=== PATIENT | female | born 1990 | race African-American/Black ===

== ENCOUNTER 2017-01-24 08:23 | Emergency (ER) | payer MEDICAID ==
[~2017-01-24] VITALS: Ht 170.2 cm; Wt 67.1 kg
[~2017-01-24 08:23] MED LIST: PREN-96 PO
[2017-01-24 09:44] LABS: Eosinophils # (auto) 0 uL; Monocytes # (auto) 0.3 uL; Neutrophils # (auto) 6.2 uL; Red Cell Distribution Width 15.4 % (11.8-14.3)
[2017-01-24 09:47] LABS: Hemoglobin 12.6 g/dL (12.2-16.2); Lymphocytes # (auto) 0.8 uL; White Blood Cell 7.4 10^3/uL (4.4-10.8)
[2017-01-24 09:50] LABS: Albumin 3.9 g/dL (3.4-5.0); BUN/Creatinine Ratio 11.4; Basophils # (auto) 0 uL; Basophils % (auto) 0.6 % (0.0-2.0); Calcium 8.8 mg/dL (8.5-10.1); Eosinophils % (auto) 0.1 % (0.0-7.0); Hematocrit 39.6 % (36.0-46.0); Lymphocytes % (auto) 10.6 % (10.0-50.0); Mean Corpuscular Hgb Conc. 31.9 g/dL (32.0-36.0); Mean Corpuscular Volume 81.5 fL (80.0-100.0); Mean Platelet Volume 8.1 fL (6.9-10.8); Monocytes % (auto) 4.5 % (0.0-12.0); Neutrophils % (auto) 84.2 % (37.0-80.0); Nucleated Red Blood Cells % 0.1 %; Platelet Count (auto) 293 10^3/uL (140-450); Potassium 3.9 mmol/L (3.5-5.1)
[2017-01-24 09:53] LABS: Bilirubin, Total 0.3 mg/dL (0.2-1.0); Total Protein 7.7 g/dL (6.4-8.2)
[2017-01-24 10:27] VITALS: BP 134/95
[2017-01-24 11:42] LABS: Urine Bilirubin Negative (Negative); Urine Blood TRACE /uL (Negative); Urine Color Yellow (Yellow); Urine Glucose Normal (Normal); Urine Ketone 2+ (Negative); Urine Mucus FEW (None Seen); Urine Nitrite Negative (Negative); Urine RBC 1 /hpf (0 - 4); Urine Squamous Epithelial Cell FEW /hpf (<5); Urine Urobilinogen Normal (Negative); Urine pH 5.5 (5.0-8.0)
[2017-01-24] MEDS ORDERED: SODIUM CHLORIDE 0.9% 1,000 ML IV ONE (11:57)
[2017-01-24] MEDS ORDERED: METOCLOPRAMIDE HCL 5MG/ml INJ 2ml VIAL IV ONE (12:00)
== END 2017-01-24 15:20 | disposition home or self-care (01) ==
LOC: ER 08:23
DX: K52.9 Noninfective gastroenteritis and colitis, unspecified (principal)
CPT/HCPCS: 36415; 80053; 81001; 81025; 83735; 85025; 96361; 96374; 99284; J2765; J7030

== ENCOUNTER 2017-05-11 17:59 | Emergency (ER) | payer MEDICAID ==
[~2017-05-11] VITALS: Ht 167.6 cm; Wt 66.2 kg
[2017-05-11 19:53] LABS: Eosinophils # (auto) 0 uL; Hemoglobin 12.5 g/dL (12.2-16.2)
[2017-05-11 19:55] LABS: Basophils # (auto) 0 uL; Basophils % (auto) 0.6 % (0.0-2.0); Eosinophils % (auto) 0.2 % (0.0-7.0); Hematocrit 38.8 % (36.0-46.0); Lymphocytes # (auto) 1.2 uL; Lymphocytes % (auto) 16.1 % (10.0-50.0); Mean Corpuscular Hemoglobin 26.3 pg (28.0-32.0); Mean Corpuscular Hgb Conc. 32.3 g/dL (32.0-36.0); Mean Corpuscular Volume 81.5 fL (80.0-100.0); Monocytes # (auto) 0.7 uL; Monocytes % (auto) 9.1 % (0.0-12.0); Neutrophils # (auto) 5.3 uL; Nucleated Red Blood Cells % 0.1 %; Platelet Count (auto) 382 10^3/uL (140-450); Red Blood Cells 4.76 10^6/uL (4.0-5.20); Red Cell Distribution Width 15.4 % (11.8-14.3); White Blood Cell 7.2 10^3/uL (4.4-10.8)
[2017-05-11 20:16] LABS: BUN/Creatinine Ratio 9.4; Calcium 8.2 mg/dL (8.5-10.1); Potassium 3.4 mmol/L (3.5-5.1)
[2017-05-11 21:23] LABS: Urine Bacteria FEW /hpf (None Seen); Urine Blood 1+ /uL (Negative); Urine Mucus MODERATE (None Seen); Urine Specific Gravity 1.042 (1.001-1.035); Urine WBC 3 /hpf (0 - 5)
[2017-05-11 21:48] LABS: Amylase 47 U/L (25-115); Lipase 73 U/L (73-393)
[2017-05-11] MEDS ORDERED: SODIUM CHLORIDE 0.9% 1,000 ML IV ONE (23:15)
[2017-05-11] MEDS ORDERED: cefTRIAXone 1GM/10ml IVPUSH 10 ML IV ONE (23:45)
[2017-05-12 00:03] VITALS: BP 104/65
[2017-05-12] MEDS ORDERED: ONDANSETRON HCL 4 MG/2 ML VIAL IV ONE (00:45)
[2017-05-12] MEDS ORDERED: ACETAMINOPHEN 325 MG TAB PO ONE ×2 (01:00)
== END 2017-05-12 05:49 | disposition home or self-care (01) ==
LOC: ER 18:03
DX: O23.41 Unspecified infection of urinary tract in pregnancy, first trimester (principal); Z79.899 Other long term (current) drug therapy; Z3A.01 Less than 8 weeks gestation of pregnancy
CPT/HCPCS: 36415; 76801; 76817; 80048; 81001; 81025; 82150; 83690; 84702; 85025; 96361; 96374; 96375; 99285; J2405; J7030

== ENCOUNTER 2017-11-11 01:14 | Emergency (ER) | payer MEDICAID ==
[~2017-11-11] VITALS: Ht 167.6 cm; Wt 65.8 kg
[2017-11-11] MEDS ORDERED: ONDANSETRON ODT 4 MG TAB PO ONE (03:30)
[2017-11-11] MEDS ORDERED: ACETAMINOPHEN 325 MG TAB PO ONE (03:30)
[2017-11-11 03:51] LABS: Urine Bacteria FEW /hpf (None Seen); Urine Blood 1+ /uL (Negative); Urine Mucus FEW (None Seen); Urine Specific Gravity 1.026 (1.001-1.035); Urine WBC 17 /hpf (0 - 5)
[2017-11-11 04:13] LABS: Alcohol, Urine < 3.0 mg/dL (0-5); Amphetamine Screen, Urine NEGATIVE (NEGATIVE); Barbiturate Scree,Urine NEGATIVE (NEGATIVE); Benzodiazephine Screen, Urine NEGATIVE (NEGATIVE); Cannabinoid Screen, Urine POSITIVE (NEGATIVE); Cocaine Screen, Urine POSITIVE (NEGATIVE); Opiate Scree,Urine NEGATIVE (NEGATIVE); Phencyclidine Screen, Urine NEGATIVE (NEGATIVE)
[2017-11-11 05:00] LABS: Basophils # (auto) 0.1 uL; Basophils % (auto) 0.8 % (0.0-2.0); Eosinophils # (auto) 0 uL; Hematocrit 41.1 % (36.0-46.0); Hemoglobin 13.7 g/dL (12.2-16.2); Lymphocytes # (auto) 0.7 uL; Lymphocytes % (auto) 8.2 % (10.0-50.0); Mean Corpuscular Hemoglobin 27.2 pg (28.0-32.0); Mean Corpuscular Hgb Conc. 33.3 g/dL (32.0-36.0); Mean Corpuscular Volume 81.7 fL (80.0-100.0); Monocytes # (auto) 0.3 uL; Monocytes % (auto) 3.6 % (0.0-12.0); Neutrophils # (auto) 7.3 uL; Neutrophils % (auto) 87.4 % (37.0-80.0); Nucleated Red Blood Cells % 0.1 %; Platelet Count (auto) 322 10^3/uL (140-450); Red Blood Cells 5.03 10^6/uL (4.0-5.20); White Blood Cell 8.4 10^3/uL (4.4-10.8)
[2017-11-11 05:17] LABS: Albumin 4.1 g/dL (3.4-5.0); BUN/Creatinine Ratio 8.9; Calcium 8.6 mg/dL (8.5-10.1); Potassium 3.8 mmol/L (3.5-5.1)
[2017-11-11 05:20] LABS: Bilirubin, Total 0.5 mg/dL (0.2-1.0); Total Protein 8.2 g/dL (6.4-8.2)
[2017-11-11] MEDS ORDERED: KETOROLAC TROMETH 60MG/2ML VIAL IM ONE ×2 (05:45)
[2017-11-11 05:52] VITALS: BP 134/88
== END 2017-11-11 05:53 | disposition home or self-care (01) ==
LOC: ER 01:14
DX: R10.84 Generalized abdominal pain (principal); F12.10 Cannabis abuse, uncomplicated
CPT/HCPCS: 36415; 74176; 80053; 80307; 81001; 81025; 82150; 83690; 85025; 96372; 99285; J1885; Q0162

== ENCOUNTER 2024-12-03 13:42 | Observation (INO) | payer MEDICAID, OTHER ==
[~2024-12-03] VITALS: Ht 170.2 cm; Wt 84.4 kg
[2024-12-03] MEDS: ONDANSETRON HCL 4 MG/2 ML VIAL IV ONE ×2 (14:38→17:12)
[2024-12-03] MEDS: LACTATED RINGER'S 1,000 ML IV ONE (14:40)
[2024-12-03 15:23] LABS: COVID19 ANTIGEN SOFIA FIA NEGATIVE (NEGATIVE)
[2024-12-03 16:00] LABS: Hematocrit 31.1 % (36.0-46.0); Hemoglobin 10.3 g/dL (12.2-16.2); Mean Corpuscular Hemoglobin 26.9 pg (28.0-32.0); Mean Corpuscular Volume 81.2 fL (80.0-100.0); Nucleated Red Blood Cells % 0.1 %
[2024-12-03 16:03] LABS: Alanine Aminotransferase 19 U/L (7-40); Albumin 4.1 g/dL (3.2-4.8); Alkaline Phosphatase 85 U/L (46-116); Anion Gap 11 (5-15); BUN/Creatinine Ratio 12.1 (10.0-20.0); Calcium 8.8 mg/dL (8.7-10.4); Carbon Dioxide 25 mmol/L (20-31); Chloride 102 mmol/L (98-107); Glucose 102 mg/dL (74-106); Sodium 138 mmol/L (136-145); Total Protein 6.8 g/dL (5.7-8.2); Uric Acid 4.2 mg/dL (3.1-7.8)
[2024-12-03 16:04] LABS: Bilirubin, Total 0.3 mg/dL (0.2-1.0)
[2024-12-03 16:07] LABS: Blood Urea Nitrogen 8 mg/dL (9-23); Potassium 3.1 mmol/L (3.5-5.1)
--- NOTE | 2024-12-03 16:35 | DVH ---
LIMITED OB ULTRASOUND > 14 WKS: HISTORY: PIH, limited records TECHNIQUE: Multiple real-time grayscale images of the gravid uterus with duplex Doppler color flow an d M-mode spectral analysis. TRANSDUCER: Transabdominal COMPARISON: US PELVIS PREG W TV on DOS: 04/22/22, US PELVIS PREG W TV on DOS: 03/28/22, US-PELVIS PREG W TV on DOS: 06/09/19 FINDINGS: IUP single live fetus at 29 weeks and 5 days based on composite averages of the BPD, head circumferen ce, abdominal circumference and femur length Estimated weight 1411 grams heart rate 160 beats per minute DOMONIQUE 13.6 cm Cervix is closed and measures 2.0 cm Cephalic Presentation Grade 2, fundal Placenta without previa or abruption. Limited assessment of anatomy secondary to advanced gestational age. Grossly, 4-chamber heart, stomach, kidneys, bladder are grossly within normal limits. IMPRESSION: IUP single live fetus at 29 weeks and 5 days AUA corresponding to an MIKAELA of 02/13/2025 Cervix is shortened without funneling measuring 2.0-2.3 cm (measured translabial).
[2024-12-03] MEDS ORDERED: hydrALAZINE HCL 20 MG/ML VL IV ONE (16:45)
[2024-12-03 17:13] LABS: Urine Protein, UAD 1+ (Negative)
[2024-12-03 17:23] LABS: Protein, Urine 69.5 mg/dL (1-14)
[2024-12-03 17:25] LABS: Barbiturate Scree,Urine Neg (NEGATIVE)
[2024-12-03 17:26] LABS: Cannabinoid Screen, Urine Pos (NEGATIVE)
[2024-12-03 17:27] LABS: Amphetamine Screen, Urine Neg (NEGATIVE); Benzodiazephine Screen, Urine Neg (NEGATIVE); Cocaine Screen, Urine Pos (NEGATIVE); Opiate Scree,Urine Neg (NEGATIVE); Phencyclidine Screen, Urine Neg (NEGATIVE)
--- NOTE | 2024-12-03 17:57 | DVH ---
Technique: Real-time ultrasound imaging of the abdomen was performed with grayscale and color Doppler . Indication: abdominal pain, Comparison: None Findings: Liver measures 19.3 cm. It is increased in echogenicity and echotexture without focal mass. Portal v ein is normal in caliber and demonstrates normal hepatopetal flow. Gallbladder demonstrates no evidence for cholelithiasis. There is no pericholecystic fluid. The wall thickness is normal. The common bile duct measures 6 mm. No intrahepatic biliary ductal dilatation. The right kidney measures 12.3 cm. The left kidney measures 12.3 cm. No hydronephrosis or sonographic evidence of nephrolithiasis. The visualized portion of the pancreas is unremarkable. Spleen measures 9.6 cm. The visualized portion of the IVC is unremarkable. Impression: No hydronephrosis. No sonographic evidence for cholelithiasis.
--- NOTE | 2024-12-05 12:55 | DVHDS2 ---
Physician Discharge Progress N Final Diagnosis: pih 38wks Operations or Procedures: Operations or Procedures nst reactive reviwed,sono Condition on Discharge: Good Disposition: Home Discharge Instructions: Diet: Regular Activity: See Comment Activity comment: pelvic rest Medications: na Follow Up Care: Specialist: 1d Discharge Statement: "Patient was advised to return to the ER or call 911 if any headaches, dizziness, shortness of breath, chest pain, abdominal pain, bleeding, fevers, or worsening of medical condition. Patient was counseled about treatment plan, medications, possible side effects, patientverbalized understanding. All questions were answered to the best of my ability. This discharge took greater then 30 minutes in planning, reviewing documentation, counseling the patient, and discussing with other team members." Visit Coding OBGYN Date of Service: Dec 03, 2024 Billing Provider: SHIRAZ TURNER DO ASSOCIATE FINANCIAL REPRESENTATIVE Common Visit Codes: 18997-SYJHCPV OBS CARE (HIGH) ASSOCIATE FINANCIAL REPRESENTATIVE Procedure Codes: 40657-19- NON-STRESS TEST SHIRAZ TURNER DO Dec 05, 2024 12:55
== END 2024-12-03 18:49 | disposition home or self-care (01) ==
LOC: LDRP 13:42 → UNDOADMOB 13:42 → LDRP 13:50
PROVIDERS: ADMIT Obstetrics & Gynecology; ATTEND Obstetrics & Gynecology
DX: O26.893 Other specified pregnancy related conditions, third trimester (principal); R19.7 Diarrhea, unspecified; O21.2 Late vomiting of pregnancy; Z3A.29 29 weeks gestation of pregnancy; Z98.890 Other specified postprocedural states; Z79.899 Other long term (current) drug therapy; Z20.822 Contact with and (suspected) exposure to COVID-19
CPT/HCPCS: 36415; 59025; 76700; 76805; 80053; 80307; 81001; 81002; 82570; 82948; 84156; 84550; 85025; 87426; 87804; 96361; 96374; 96376; G0378; J2405; 96360; 96375